=== PATIENT | female | born 1990 | race Caucasian/White ===

== ENCOUNTER 2017-02-27 20:03 | Outpatient (CLI) | payer OTHER, SELFPAY ==
[~2017-02-27] VITALS: Ht 160 cm; Wt 91.0 kg
[2017-02-27 20:19] VITALS: BP 127/71
[2017-02-27] MEDS ORDERED: PRENTAB9 PO (20:23)
[2017-02-27] MEDS ORDERED: ACET50TA PO (20:23)
[2017-02-27] MEDS ORDERED: ZANTTAB PO (20:24)
[2017-02-27] MEDS ORDERED: ROLA1CHW PO (20:25)
[2017-02-27 20:38] VITALS: BP 128/64
[2017-02-27] MEDS ORDERED: LR 1,000 ML IV ONE (20:45)
[2017-02-27 21:03] LABS: MEAN CORPUSCULAR HEMOGLOBIN 29.6 pg (27.0-33.0); MEAN CORPUSCULAR HGB CONC 34.2 g/dl (32.0-36.5); MEAN CORPUSCULAR VOLUME 86.7 fl (80.0-96.0); RED CELL DISTRIBUTION WIDTH 13.3 % (11.5-14.5); WHITE BLOOD COUNT 13.8 10^3/uL (4.0-10.0)
[2017-02-27 21:27] LABS: ALBUMIN 2.6 GM/DL (3.2-5.2); ALBUMIN/GLOBULIN RATIO 0.74 (1.00-1.93); ALKALINE PHOSPHATASE 66 U/L (45-117); ALT/SGPT 17 U/L (12-78); AMYLASE 40 U/L (25-115); ANION GAP 10 MEQ/L (8-16); AST/SGOT 13 U/L (15-37); BILIRUBIN,TOTAL 0.3 MG/DL (0.2-1.0); BLOOD UREA NITROGEN 6 MG/DL (7-18); CALCIUM LEVEL 8.6 MG/DL (8.5-10.1); CARBON DIOXIDE LEVEL 21 MEQ/L (21-32); CHLORIDE LEVEL 108 MEQ/L (98-107); CREATININE FOR GFR 0.47 MG/DL (0.55-1.02); GLOMERULAR FILTRATION RATE > 60.0 (>60); GLUCOSE, FASTING 96 MG/DL (70-105); POTASSIUM SERUM 3.8 MEQ/L (3.5-5.1); SODIUM LEVEL 139 MEQ/L (136-145); TOTAL PROTEIN 6.1 GM/DL (6.4-8.2)
[2017-02-27 21:56] VITALS: BP 129/68
== END 2017-02-27 22:05 | disposition home or self-care (01) ==
LOC: M LDO 20:03
PROVIDERS: ATTEND Obstetrics & Gynecology
DX: O99.89 Other specified diseases and conditions complicating pregnancy, childbirth and the puerperium (principal); Z3A.27 27 weeks gestation of pregnancy; R10.10 Upper abdominal pain, unspecified; R19.7 Diarrhea, unspecified